=== PATIENT | female | born 1995 | race Caucasian/White ===

== ENCOUNTER 2017-05-01 21:37 | Emergency (ER) | payer OTHER ==
[~2017-05-01] VITALS: Ht 162.6 cm; Wt 64.3 kg
[2017-05-01 21:38] VITALS: BP 113/73
[2017-05-01] MEDS ORDERED: PROCHLORPERAZINE 5 MG/ML, 2ML IVPush ONE (22:00)
[2017-05-01] MEDS ORDERED: KETOROLAC 30 MG/1 ML IVPush ONE (22:00)
[2017-05-01] MEDS ORDERED: SODIUM CHLORIDE 0.9% 1,000ML IVBOLUS ONE (22:00)
[2017-05-01] MEDS ORDERED: DIPHENHYDRAMINE 50 MG/ML, 1ML IVPush ONE (22:00)
[2017-05-01] MEDS ORDERED: SODIUM CHLORIDE FLUSH 10ML SYR IVF ONE (22:00)
[2017-05-01 22:11] LABS: HEMATOCRIT 39.3 % (34.6-47.8); HEMOGLOBIN 13.4 g/dL (11.7-16.4)
[2017-05-01] MEDS ORDERED: PROCHLORPERAZINE 5 MG/ML, 2ML ONE (22:19)
[2017-05-01] MEDS ORDERED: DIPHENHYDRAMINE 50 MG/ML, 1ML ONE (22:20)
[2017-05-01] MEDS ORDERED: KETOROLAC 30 MG/1 ML ONE (22:20)
[2017-05-01 22:24] LABS: BLOOD UREA NITROGEN 15 mg/dL (7-18)
== END 2017-05-01 23:38 | disposition home or self-care (01) ==
LOC: ED 23:10
DX: R51 Headache (principal)
CPT/HCPCS: 36415; 70450; 80048; 82040; 84703; 85025; 96361; 96374; 96375; 99285; J0780; J1200; J1885; J7030

== ENCOUNTER 2018-12-02 09:59 | Emergency (ER) | payer OTHER ==
[~2018-12-02] VITALS: Ht 162.6 cm; Wt 66.0 kg
[2018-12-02] MEDS ORDERED: KETOROLAC 30 MG/1 ML IM ONE (10:30)
[2018-12-02] MEDS ORDERED: DIPHENHYDRAMINE 25 MG CAPSULE PO ONE (10:30)
[2018-12-02] MEDS ORDERED: PROCHLORPERAZINE 5 MG/ML, 2ML IM ONE (10:30)
[2018-12-02] MEDS ORDERED: KETOROLAC 30 MG/1 ML ONE ×2 (10:44→10:49)
[2018-12-02] MEDS ORDERED: PROCHLORPERAZINE 5 MG/ML, 2ML ONE (10:44)
[2018-12-02] MEDS ORDERED: DIPHENHYDRAMINE 25 MG CAPSULE ONE (10:44)
[2018-12-02 11:38] VITALS: BP 122/67
== END 2018-12-02 11:40 | disposition home or self-care (01) ==
LOC: ED 11:03
DX: F43.0 Acute stress reaction (principal); F41.9 Anxiety disorder, unspecified; G44.209 Tension-type headache, unspecified, not intractable
CPT/HCPCS: 96372; 99284; J0780; J1885; Q0163; 99283

== ENCOUNTER 2020-03-14 11:31 | Emergency (ER) | payer OTHER ==
[~2020-03-14] VITALS: Ht 162.6 cm; Wt 78.5 kg
[2020-03-14 11:44] VITALS: BP 132/90
--- NOTE | 2020-03-14 12:16 | NUR ---
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
== END 2020-03-14 14:13 | disposition left against medical advice (07) ==
LOC: ED 13:31
DX: R10.2 Pelvic and perineal pain (principal); R51 Headache
CPT/HCPCS: 36415; 84702; 99283